=== PATIENT | male | born 1980 | race Caucasian/White ===

== ENCOUNTER 2020-06-14 01:12 | Emergency (ER) | payer OTHER ==
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
[2020-06-14] MEDS ORDERED: Diphtheria,Pertussis(Acell),Tetanus Vaccine 0.5 ML Syringe IM ONE (02:27)
[2020-06-14] MEDS ORDERED: Sodium Chloride 0.9% 1,000 ML IV SCH (02:30)
== END 2020-06-14 05:10 | disposition left against medical advice (07) ==
LOC: JP.ED 01:12
DX: S06.0X9A Concussion with loss of consciousness of unspecified duration, initial encounter (principal); F17.210 Nicotine dependence, cigarettes, uncomplicated; F10.129 Alcohol abuse with intoxication, unspecified; Y90.7 Blood alcohol level of 200-239 mg/100 ml; V86.59XA Driver of other special all-terrain or other off-road motor vehicle injured in nontraffic accident, initial encounter
CPT/HCPCS: 36415; 70450; 72125; 80053; 80305; 80307; 81001; 85025; 96360; 96361; 99284; J7030